=== PATIENT | female | born 1970 ===

== ENCOUNTER 2020-11-02 22:22 | Inpatient (IN) | payer OTHER ==
[~2020-11-02] VITALS: Ht 160 cm; Wt 75.4 kg
[2020-11-02 23:28] VITALS: BP 135/81; PULSE 73; TEMP 98.1
[2020-11-03] VITALS (7 sets, daily range): BP systolic 11–139; BP diastolic 67–86; PULSE 76–99; TEMP 97.4–98.4
--- NOTE | 2020-11-03 | NUR ---
Pt. arrived to the floor via stretcher. Pt. is A&OX3, assessment complete. INT to rt. ac patent. Pt. denies pain or other needs, call light within reach.
[2020-11-03] MEDS ORDERED: ASPIRIN 32325 MG/TAB PO (00:02)
[2020-11-03 03:15] LABS: HEMATOCRIT 46.8 % (37.0-47.0); MEAN CELL VOLUME 90 fl (80.0-100.0); MEAN CORPUSCULAR HEMOGLOBIN 31 pg (27.0-31.0); MEAN CORPUSCULAR HGB CONC 34 g/dl (33.0-37.0); MEAN PLATELET VOLUME 10.2 fl (7.4-10.4); PLATELET COUNT 250 K/mm3 (130-400); RED BLOOD COUNT 5.18 M/mm3 (4.10-5.30); REDCELL DISTRIBUTION WIDTH-CV 12.7 % (11.5-14.5)
[2020-11-03 03:27] LABS: C-REACTIVE PROTEIN 1.1 mg/dL (0.0-0.9); CALCIUM 8.7 mg/dL (8.4-10.2); CREATININE, serum 0.54 (0.52-1.25); POTASSIUM 4.1 mmol/L (3.4-5.0)
[2020-11-03 03:37] LABS: BAND 1 % (0-10); LYMPHOCYTE 10 % (20.0-51.0); NEUTROPHILS 88 % (42.0-75.2); PLATELET ESTIMATE NORMAL (NORMAL)
[2020-11-03 03:55] LABS: TSH w REFLEX 0.981 uIU/mL (0.465-4.680)
--- NOTE | 2020-11-03 07:50 | NUR ---
Lying in bed with eyes open watching TV. Alert and oriented x4. Denies pain at this time. Patient says that she feels like she is swallowing okay. Is aware that ENT will be by later this afternoon to see her. US contacted and they will try to be up at 0900 to perform US. Patient denies additional needs at this time.
--- NOTE | 2020-11-03 11:12 | NUR ---
Lying in bed with eyes open. bunker worker, Pam, in room talking with the patient. Denies needs or concerns. Shower was offered and patient declines at this time and says maybe later.
--- NOTE | 2020-11-03 11:15 | NUR ---
Auto Garage Attendant met with the patient to complete intake. The patient lives in [place] with her , Mark. The patient denies DME use and is independent. The patient does not have a PCP but was open to being set up with a provider in [place]. The patient does see Dr. Jaimes. The patient is not self-pay, she has a PPO plan. The patient does not have advanced directives and was not interested in DPOA-HC form. The patient plans to return home at discharge. TRISH contacted KERRY Rowan from [facility] regarding setting up PCP for the patient. Mirta to contact this SW regarding a new patient appointment if there are openings. TRISH collaborted the above information with the patient's nurse.
--- NOTE | 2020-11-03 12:10 | NUR ---
Lying in bed with eyes open. Denies pain, says only hurts when she turns head to left. No difficulty swallowing. Has been up in room ambulating. Denies additional needs at this time.
--- NOTE | 2020-11-03 15:28 | NUR ---
Dr. Kelley in to see patient. Orders palced for regular diet. Patient instructed how to order food. Spouse in room with the patient. Spouse brought in water for the patient to drink. Denies additional needs at this time.
--- NOTE | 2020-11-03 18:33 | NUR ---
Sitting up in bed working on computer. Denies pain at this time. Would like to talk with hospitalist further tomorrow regarding the ultrasound results. Denies additional needs at this time.
[2020-11-04 04:05] VITALS: BP 103/65; PULSE 77; TEMP 96
--- NOTE | 2020-11-04 07:18 | NUR ---
Sitting up in bed working on computer. Alert and oriented x4. Denies pain, has very minimal pain when she turns her head to the left. Decreased ROM when turning head to left. Denies any difficulty with swallowing. Patient will order breakfast. Wants to discuss the results of her US further with the hospitalist as she did not get these results yesterday and questions if she needs to see a vascular doctor for this issue she is having. Patient denies additional needs at this time.
[2020-11-04 07:21] VITALS: BP 118/70; PULSE 65; TEMP 97.6
--- NOTE | 2020-11-04 09:12 | NUR ---
Initial visit; Ginger thanked Ramp Supervisor for looking in on her this morning and was receptive to Ramp Supervisor keeping her in her prayers.
--- NOTE | 2020-11-04 09:14 | NUR ---
Emely with Dr. Velasco reports he can accept the patient for care. The appointment was set for Saturday, 11/09 at 10:15. The patient need to be arrive at 10:00. SW collaborated the above information with the team.
[2020-11-04 11:48] VITALS: BP 119/71; PULSE 63; TEMP 97.7
[2020-11-04 16:00] VITALS: BP 126/68; PULSE 70; TEMP 97.8
--- NOTE | 2020-11-04 16:07 | NUR ---
Receive call from KARTHIKEYAN Meyers, and she says that she would like us to try to get an appointment for next week for the patient to see Dr. Jaimes. Message left for Dr. Jaimes's office to contact this nurse.
--- NOTE | 2020-11-04 17:22 | NUR ---
Lying in bed with spouse watching movie on ipad. Denies pain. Ate 100% of dinner without any issues. Says that she is a little tired, did not sleep well last night. Encourage patient to nap when she is able. Patient verbalizes understanding and denies additional needs.
[2020-11-04 20:01] VITALS: BP 140/73; PULSE 70; TEMP 97.5
--- NOTE | 2020-11-04 21:15 | NUR ---
Pt. sitting up in bed at this time. Pt. is A&OX3, assessment complete. INT to rt. ac patent. Pt. denies pain or other needs, call light within reach.
[2020-11-05 00:30] VITALS: BP 143/87; PULSE 64; TEMP 98.1
[2020-11-05 03:52] VITALS: BP 124/73; PULSE 64; TEMP 98
[2020-11-05 06:21] LABS: BASO % 0.1 % (0.0-2.0); GRAN # 12.3 (1.4-6.5); GRAN % 87.7 % (42.2-75.2); HEMATOCRIT 43.9 % (37.0-47.0); HEMOGLOBIN 14.6 g/dl (12.5-16.0); LYMPH # 1.1 (1.2-3.4); LYMPH % 8.1 % (20.0-51.0); MEAN CELL VOLUME 94 fl (80.0-100.0); MEAN CORPUSCULAR HEMOGLOBIN 31 pg (27.0-31.0); MEAN CORPUSCULAR HGB CONC 33 g/dl (33.0-37.0); MEAN PLATELET VOLUME 10.7 fl (7.4-10.4); MONO # 0.5 (0.1-0.6); MONO % 3.6 % (1.7-9.3); PLATELET COUNT 262 K/mm3 (130-400); RED BLOOD COUNT 4.69 M/mm3 (4.10-5.30); REDCELL DISTRIBUTION WIDTH-CV 13.3 % (11.5-14.5)
[2020-11-05 06:31] LABS: CALCIUM 8.7 mg/dL (8.4-10.2); CREATININE, serum 0.54 (0.52-1.25); POTASSIUM 4.1 mmol/L (3.4-5.0)
[2020-11-05 07:28] VITALS: BP 127/77; PULSE 55; TEMP 97.7
--- NOTE | 2020-11-05 10:08 | NUR ---
Patient alert and oriented, answers questions appropriately. See assessment. No difficulty swallowing. No c/o neck pain. No other c/o at this time.
[2020-11-05] MEDS ORDERED: ELIQUIS 5MG PO (11:06)
[2020-11-05] MEDS ORDERED: CLEOCIN HC150 MG/CAP PO (11:06)
[2020-11-05 11:30] VITALS: BP 134/67; PULSE 77; TEMP 97.7
--- NOTE | 2020-11-05 11:49 | NUR ---
Patient will discharge hoe with Edwin today 11/05. There are no new needs at this time.
--- NOTE | 2020-11-05 13:09 | NUR ---
Discharge instructions reviewed with patient, verbalized understanding. Discharged via wheelchair to auto/home with spouse at 1300.
== END 2020-11-05 13:00 | disposition home or self-care (01) | DRG 155 ==
LOC: MEDICAL 22:22 → SURG 23:20
PROVIDERS: Nurse Practitioner Family; Physician Assistant; ADMIT Hospitalist
DX: J39.2 Other diseases of pharynx (principal); I82.C12 Acute embolism and thrombosis of left internal jugular vein; B18.1 Chronic viral hepatitis B without delta-agent; R59.1 Generalized enlarged lymph nodes; D75.1 Secondary polycythemia; I10 Essential (primary) hypertension; Z79.82 Long term (current) use of aspirin
CPT/HCPCS: 99232-AI; 99233-AI; 99239; C9113; G0378; J1650; J2920; J7030

== ENCOUNTER → 2021-02-01 | Outpatient (CLI) | payer OTHER ==
[~2021-02-01] MED LIST: ASPIRIN 32325 MG/TAB PO; CLEOCIN HC150 MG/CAP PO; ELIQUIS 5MG PO
== END ==
LOC: COL.RAD 11:42
DX: I82.C12 Acute embolism and thrombosis of left internal jugular vein (principal); D75.1 Secondary polycythemia

== ENCOUNTER → 2021-08-10 | Outpatient (CLI) | payer OTHER | LOC: COL.RAD 11:06 | DX: B18.1 Chronic viral hepatitis B without delta-agent (principal) ==